=== PATIENT | female | born 1995 | race Caucasian/White ===

== ENCOUNTER 2019-09-20 07:27 | Emergency (ER) | payer OTHER ==
[~2019-09-20] VITALS: Ht 165.1 cm; Wt 73.5 kg
[2019-09-20] MEDS ORDERED: ZITHROMAX500 MG PO (10:50)
== END 2019-09-20 10:55 | disposition home or self-care (01) ==
LOC: ER 07:27
DX: B34.9 Viral infection, unspecified (principal); B96.0 Mycoplasma pneumoniae [M. pneumoniae] as the cause of diseases classified elsewhere

== ENCOUNTER 2020-03-09 15:23 | Outpatient (CLI) | payer OTHER ==
[~2020-03-09 15:23] MED LIST: ZITHROMAX500 MG PO
== END 2020-03-09 15:29 | disposition home or self-care (01) ==
LOC: SONOGRAMA 15:23
PROVIDERS: ATTEND Obstetrics & Gynecology
DX: Z12.31 Encounter for screening mammogram for malignant neoplasm of breast (principal); N64.4 Mastodynia; N63.10 Unspecified lump in the right breast, unspecified quadrant; N63.20 Unspecified lump in the left breast, unspecified quadrant

== ENCOUNTER → 2020-03-30 08:21 | Outpatient (CLI) | payer OTHER | END | disposition home or self-care (01) | LOC: LAB 08:21 | PROVIDERS: ATTEND Obstetrics & Gynecology | DX: E16.1 Other hypoglycemia (principal); N39.0 Urinary tract infection, site not specified; E78.2 Mixed hyperlipidemia; E56.8 Deficiency of other vitamins; E55.9 Vitamin D deficiency, unspecified; E03.8 Other specified hypothyroidism; R97.1 Elevated cancer antigen 125 [CA 125]; R53.1 Weakness; E66.01 Morbid (severe) obesity due to excess calories; Z11.3 Encounter for screening for infections with a predominantly sexual mode of transmission ==

== ENCOUNTER 2020-04-07 09:00 | Outpatient (CLI) | payer OTHER | END 2020-04-07 15:00 | disposition home or self-care (01) | LOC: PPH VACUNA 09:00 | DX: Z23 Encounter for immunization (principal) ==

== ENCOUNTER 2020-04-21 13:28 | Emergency (ER) | payer OTHER ==
[~2020-04-21] VITALS: Ht 165.1 cm; Wt 67.6 kg
[2020-04-21] MEDS ORDERED: INTESTINEX680 M1 PO (18:26)
[2020-04-21] MEDS ORDERED: PEPCID AC20 MG PO (18:26)
== END 2020-04-21 19:37 | disposition home or self-care (01) ==
LOC: ER 13:28
DX: U07.1 COVID-19 (principal); K52.9 Noninfective gastroenteritis and colitis, unspecified

== ENCOUNTER 2021-01-29 13:33 | Outpatient (CLI) | payer OTHER ==
[~2021-01-29 13:33] MED LIST changes: +INTESTINEX680 M1 PO; +PEPCID AC20 MG PO
[2021-02-22] MEDS ORDERED: STRIBILD TABLE1 EACH PO (10:32)
== END 2021-01-29 13:34 | disposition home or self-care (01) ==
LOC: LAB 13:33
PROVIDERS: ATTEND Obstetrics & Gynecology
DX: R10.84 Generalized abdominal pain (principal); N98.1 Hyperstimulation of ovaries

== ENCOUNTER → 2021-02-22 | Emergency (ER) | payer OTHER ==
[~2021-02-22] VITALS: Ht 162.6 cm; Wt 70.3 kg
[~2021-02-22] MED LIST changes: +STRIBILD TABLE1 EACH PO
== END ==
LOC: ER 10:09
DX: S61.042A Puncture wound with foreign body of left thumb without damage to nail, initial encounter (principal); W46.0XXA Contact with hypodermic needle, initial encounter; Y93.89 Activity, other specified; Y92.69 Other specified industrial and construction area as the place of occurrence of the external cause; Y99.8 Other external cause status

== ENCOUNTER 2021-05-04 08:00 | Outpatient (CLI) | payer OTHER | END 2021-05-04 08:15 | disposition home or self-care (01) | LOC: PPH VACUNA 08:00 | PROVIDERS: ATTEND Emergency Medicine Pediatric Emergency Medicine | DX: Z23 Encounter for immunization (principal) ==

== ENCOUNTER 2021-08-03 09:00 | Outpatient (CLI) | payer OTHER | END 2021-08-03 09:15 | disposition home or self-care (01) | LOC: PPH VACUNA 09:00 | PROVIDERS: ATTEND Emergency Medicine Pediatric Emergency Medicine | DX: Z23 Encounter for immunization (principal) ==

== ENCOUNTER 2021-11-05 08:34 | Outpatient (CLI) | payer OTHER | END 2021-11-05 08:41 | disposition home or self-care (01) | LOC: LAB 08:34 | PROVIDERS: ATTEND Obstetrics & Gynecology | DX: E07.1 Dyshormogenetic goiter (principal); Z03.818 Encounter for observation for suspected exposure to other biological agents ruled out ==

== ENCOUNTER 2022-02-07 15:49 | Outpatient (CLI) | payer OTHER | END 2022-02-07 15:55 | disposition home or self-care (01) | LOC: LAB 15:49 | PROVIDERS: ATTEND Obstetrics & Gynecology | DX: J06.9 Acute upper respiratory infection, unspecified (principal); Z03.818 Encounter for observation for suspected exposure to other biological agents ruled out ==

== ENCOUNTER 2022-03-07 12:32 | Outpatient (CLI) | payer OTHER | END 2022-03-07 12:37 | disposition home or self-care (01) | LOC: SONOGRAMA 12:32 | PROVIDERS: ATTEND Obstetrics & Gynecology | DX: Z12.31 Encounter for screening mammogram for malignant neoplasm of breast (principal); N64.4 Mastodynia; N63.0 Unspecified lump in unspecified breast ==

== ENCOUNTER 2022-04-10 09:19 | Outpatient (CLI) | payer OTHER | END 2022-04-10 09:24 | disposition home or self-care (01) | LOC: PPH VACUNA 09:19 | PROVIDERS: ATTEND Emergency Medicine Pediatric Emergency Medicine | DX: Z23 Encounter for immunization (principal) ==

== ENCOUNTER → 2024-07-01 | Outpatient (CLI) | payer OTHER | END | disposition home or self-care (01) | LOC: NST 15:28 | PROVIDERS: ATTEND Obstetrics & Gynecology | DX: Z34.82 Encounter for supervision of other normal pregnancy, second trimester (principal) ==

== ENCOUNTER 2024-10-21 15:15 | Inpatient (IN) | payer OTHER ==
[~2024-10-21] VITALS: Ht 165.1 cm; Wt 94.3 kg
[2024-10-25] VITALS (7 sets, daily range): BP systolic 120–127; BP diastolic 62–89
[2024-10-25] MEDS ORDERED: PRENATAL DHA200 MG PO (10:46)
[2024-10-25] MEDS ORDERED: RINGERS SOLUTION,LACTATED 1,000 ML IV SCH (11:00)
[2024-10-25] MEDS ORDERED: VANCOMYCIN HCL 500 MG VIAL IU SCH (11:20)
[2024-10-25] MEDS ORDERED: OXYTOCIN 1,000 ML IV ONE (11:30)
[2024-10-25] MEDS ORDERED: OXYTOCIN 20 UNITS/500ML RL PIGGYBAG IV ONE (11:34)
[2024-10-25] MEDS ORDERED: VANCOMYCIN HCL 500 MG VIAL IV NR (12:00)
[2024-10-25 12:55] LABS: HEMATOCRIT 36.3 % (36.0-45.00); HEMOGLOBIN 12.2 g/dL (12.0-15.00); MEAN CELL VOLUME 92.3 fL (80.00-100.00); MEAN CORPUSCULAR HGB CONC 33.5 g/dl (32.0-36.0); RED BLOOD COUNT 3.93 M/uL (4.00-6.00); RED CELL DISTRIBUTION WIDTH 13.3 % (11.5-14.5)
[2024-10-25 13:07] LABS: INR < 0.93; PARTIAL THROMBOPLASTIN TIME 24.5 SECONDS (22.0-34.0)
[2024-10-25 13:13] LABS: ALBUMIN 2.7 gm/dL (3.4-5.0); BILIRUBIN TOTAL 0.38 mg/dL (0.3-1.2); CALCIUM 9.3 mg/dL (8.5-10.1); CREATININE SERUM 0.58 mg/dL (0.55-1.02); GFR 122.91; GLOBULINA 4.3 G/DL (2.4-3.5); POTASSIUM 4.21 mEq/L (3.5-5.1); PROTHROMBIN TIME 9.9 SECONDS (9.0-11.5)
[2024-10-25 14:05] LABS: PLATELET COUNT 195 K/uL (150-450)
[2024-10-25] MEDS ORDERED: OXYTOCIN 500 ML IV SCH (15:00)
[2024-10-25] MEDS ORDERED: ERYTHROMYCIN BASE OPHT 1GM EACH TUBE OP ONE ×2 (17:37→19:45)
[2024-10-25] MEDS ORDERED: LIDOCAINE HCL 1% 10ML VIAL ONE (17:38)
[2024-10-25] MEDS ORDERED: CHLORHEXIDINE GLUCONATE 120 ML BOTTLE TOP ONE ×2 (17:38→19:45)
[2024-10-25] MEDS ORDERED: OXYTOCIN 20 UNITS/1000ML RL PIGGYBAG IV ONE (17:38)
[2024-10-25] MEDS ORDERED: OxyCODONE HCL/APAP UD (PERCOCET) PO PRN (19:15)
[2024-10-25] MEDS ORDERED: OXYTOCIN 1,000 ML IV SCH (19:15)
[2024-10-25] MEDS ORDERED: LIDOCAINE HCL 1% 10ML VIAL IJ ONE (19:45)
[2024-10-25] MEDS ORDERED: VANCOMYCIN HCL 500 MG VIAL IV SCH (21:00)
[2024-10-26 00:16] VITALS: BP 117/73
[2024-10-26 05:34] VITALS: BP 108/69
[2024-10-26 08:06] VITALS: BP 101/67
[2024-10-26 15:29] VITALS: BP 110/70
[2024-10-26] MEDS ORDERED: DIPHENHYDRAMINE HCL 25 MG CAPSULE PO STA (21:24)
[2024-10-27 00:17] VITALS: BP 117/74
[2024-10-27 05:27] VITALS: BP 101/66
[2024-10-27 07:29] VITALS: BP 105/71
== END 2024-10-27 13:03 | disposition home or self-care (01) | DRG 807 ==
LOC: LDR 10-25 10:44 → OB/GYN 10-25 20:11
PROVIDERS: Obstetrics & Gynecology; ADMIT Obstetrics & Gynecology; ATTEND Obstetrics & Gynecology
PROC: 10E0XZZ Delivery of Products of Conception, External Approach (ICD-10-PCS; principal; 2024-10-25)
PROC: 0UQG7ZZ Repair Vagina, Via Natural or Artificial Opening (ICD-10-PCS; 2024-10-25)
PROC: 4A1HXCZ Monitoring of Products of Conception, Cardiac Rate, External Approach (ICD-10-PCS; 2024-10-25)
DX: O71.4 Obstetric high vaginal laceration alone (principal); Z37.0 Single live birth; O69.81X0 Labor and delivery complicated by cord around neck, without compression, not applicable or unspecified; Z3A.40 40 weeks gestation of pregnancy